=== PATIENT | male | born 1985 | race Hispanic/Latino ===

== ENCOUNTER 2017-08-26 07:45 | Day surgery (SDC) | payer BC ==
[~2017-08-26] VITALS: Ht 160 cm; Wt 79.4 kg
[~2017-08-26 07:45] MED LIST: PREDNISONE20 MG PO; PROVENTIL HFA6.7 GM IH; SINGULAIR10 MG PO
[2017-08-26 08:50] VITALS: BP 129/72
[2017-08-26] MEDS ORDERED: ROXICODONE5 MG PO (11:35)
[2017-08-26 12:40] VITALS: BP 129/89
[2017-08-26 13:40] VITALS: BP 116/73
[2017-08-26 14:37] VITALS: BP 121/76
== END 2017-08-26 15:00 | disposition home or self-care (01) ==
LOC: SDC 07:45
PROC: 0YU60JZ Supplement Left Inguinal Region with Synthetic Substitute, Open Approach (ICD-10-PCS; principal; 2017-08-26)
DX: K40.30 Unilateral inguinal hernia, with obstruction, without gangrene, not specified as recurrent (principal); J45.20 Mild intermittent asthma, uncomplicated
CPT/HCPCS: 88302; C1781; J0690; J1100; J1170; J1885; J2001; J2250; J2405; J2795; J3010; J3475; S0020